=== PATIENT | male | born 1985 | race Hispanic/Latino ===

== ENCOUNTER → 2019-06-13 | Outpatient (CLI) | payer OTHER ==
--- NOTE | 2019-06-13 15:53 | REP ---
BILATERAL BREAST ULTRASOUND: Real-time sonographic evaluation of the bilateral breasts performed. There is reportedly bilateral breast enlargement. Retroareolar regions are scanned bilaterally and demonstrate no cystic or solid nodule. No soft tissue abnormality or fluid collection is seen. IMPRESSION: ACR 1 negative bilateral breast ultrasound. No suspicious mass bilaterally. Electronically Signed by Paco Palacios MD 06/15/2019 07:55 A
== END ==
LOC: M RAD 14:19
PROVIDERS: ATTEND Physician Assistant
DX: N62 Hypertrophy of breast (principal)

== ENCOUNTER 2021-09-20 13:35 | Emergency (ER) | payer OTHER ==
[~2021-09-20] VITALS: Ht 177.8 cm; Wt 100.6 kg
[2021-09-20] MEDS ORDERED: KETOROLAC 60MG 2ML VIAL IM ONE (16:45)
[2021-09-20] MEDS ORDERED: ACETAMINOPHEN 325 MG TAB PO ONE (16:45)
[2021-09-20] MEDS ORDERED: KETO10TAB PO (18:00)
[2021-09-20] MEDS ORDERED: CYCL-707 PO (18:00)
--- NOTE | 2021-09-20 18:02 | REP ---
INDICATION: back pain. COMPARISON: None. TECHNIQUE: Lateral, swimmer's lateral, AP, and open-mouth odontoid views are acquired. FINDINGS: There is preserved vertebral body heights and normal alignment. Disc spaces are maintained. Prevertebral soft tissues are not widened. Swimmer's lateral view shows no abnormality in the upper thoracic segments. AP and open-mouth odontoid views are unremarkable. IMPRESSION: Negative cervical spine radiographs. <Electronically signed by Antolin Starks > 09/20/21 [id number]
--- NOTE | 2021-09-20 18:03 | REP ---
INDICATION: back pain. COMPARISON: None. TECHNIQUE: AP and lateral views of the thoracic spine are provided. FINDINGS: Thoracic vertebral body heights are preserved. Alignment is normal. Disc spaces are maintained. There is mild discogenic spurring in the lower thoracic levels along the right lateral and anterior margins of the thoracic spine. Pedicles and posterior elements are intact. No paravertebral soft tissue mass is seen. There is a minimal dextroconvex thoracic curvature in the midthoracic spine. IMPRESSION: Mild degenerative disc changes. No acute bony abnormality. <Electronically signed by Antolin Starks > 09/20/21 [id number]
[2021-09-20 18:45] VITALS: BP 133/86
== END 2021-09-20 18:43 | disposition home or self-care (01) ==
LOC: M ED 13:35
DX: M51.34 Other intervertebral disc degeneration, thoracic region (principal); M54.12 Radiculopathy, cervical region; M62.830 Muscle spasm of back
CPT/HCPCS: 72040; 72072; 96372; 99283; J1885